=== PATIENT | male | born 1990 | race Caucasian/White ===

== ENCOUNTER → 2024-07-15 | Outpatient (CLI) | payer BC ==
--- NOTE | 2024-07-17 09:34 | XR ---
EXAMINATION TYPE: XR foot complete RT DATE OF EXAM: 07/15/2024 9:29 AM CLINICAL INDICATION: Male, 33 years old with history of [id number] RT FOOT PAIN; [facility] COMPARISON: None TECHNIQUE: XR foot complete RT examined in the AP, oblique, and lateral projections. FINDINGS/IMPRESSION: 1. There is a lucency to the base of the fifth metatarsal compatible with fracture which appears to be subacute given patient history. 2. Calcaneal plantar spurring.
== END | disposition home or self-care (01) ==
LOC: RADXRYALE 09:10
PROVIDERS: ATTEND Physician Assistant
DX: M79.671 Pain in right foot